=== PATIENT | male | born 1980 | race Caucasian/White ===

== ENCOUNTER 2021-05-15 08:29 | Emergency (ER) | payer OTHER, SELFPAY ==
[2021-05-15 08:40] VITALS: BP 118/81; PULSE 85; RESP 18; TEMP 37.1; O2SAT 96; BMI 31.2
[2021-05-15 08:47] VITALS: BP 128/74; PULSE 84; RESP 18; TEMP 37.1; O2SAT 97
--- NOTE | 2021-05-15 09:16 | W.ED.FEVER ---
HPI - Fever General: Chief Complaint: Fever Stated Complaint: Fever, body aches, sweats Time Seen by Provider: 05/15/21 08:31 History of Present Illness: HPI Narrative: 40-year-old male presents emergency room complaining of fever fatigue myalgias temp up to 101.7 for the last 3 days. Progressively worsening patient is an insulin-dependent diabetic. He has had multiple tick bites over the last few weeks has been taking more regularly has not been treated for anything. Not had any nausea vomiting shortness of breath or cough. He is not noticed any rash or target bull's-eye rashes around any of these bites. No diarrhea or anosmia. MD elicited complaint: fever and malaise Pertinent past history: diabetes Onset (ago): day(s) Context: other (Recent tick bites) Exacerbating factors: nothing Relieving factors: nothing Associated symptoms: Reports chills, myalgias, nausea and stiffness; Deny abdominal pain, flank pain, chest pain, confusion, cough, diarrhea, dysuria, extremity pain, headache(s), nasal congestion, night sweats, rash, rhinorrhea, short of breath, sinus pain, sore throat, vaginal discharge, vomiting or weight loss Treatments prior to arrival fever: none Review of Systems Const: Reports: chills; Denies: night sweats ENMT: Denies: nasal congestion or sinus pain Card: Denies: chest pain Resp: Denies: dyspnea, productive cough or non-productive cough GI: Reports: nausea; Denies: abdominal pain, vomiting or diarrhea : Denies: flank pain or dysuria Musc: Denies: extremity pain Skin/Breast: Denies: rash or pruritus Neuro: Denies: headache(s) or confusion Physical Exam Const: COMMON NORMALS: no acute distress GENERAL APPEARANCE: cooperative and comfortable ORIENTATION/CONSCIOUSNESS: Yes awake, Yes oriented to person, Yes oriented to place and Yes oriented to time HENMT: COMMON NORMALS: normocephalic, atraumatic, hearing grossly normal bilaterally and external ears normal HEAD & SCALP: normocephalic and atraumatic EXTERNAL EAR: Yes external ears normal Neck/C-Spine: COMMON NORMALS: no JVD Resp: COMMON NORMALS: normal respiratory effort, No retractions, No use of accessory muscles and clear to auscultation bilaterally AUSCULTATION: clear to auscultation bilaterally Cardio: COMMON NORMALS: no JVD, regular rate, regular rhythm and No murmurs present (Cardio) RATE: regular rate RHYTHM: regular rhythm GI: COMMON NORMALS: Soft to palpation and No hepatosplenomegaly present AUSCULTATION: Yes normoactive bowel sounds PALPATION: Yes Soft to palpation, No Tenderness to palpation present (GI), No Guarding due to palpation present (GI) and Yes No hepatosplenomegaly present Extremity: COMMON NORMALS: normal to inspection, capillary refill normal, no clubbing, cyanosis or edema, no calf tenderness and no pedal edema Neuro: SENSORIUM/ORIENTATION: Yes oriented to person, Yes oriented to place and Yes oriented to time Skin: COMMON NORMALS: no rashes or lesions noted GENERAL SKIN EXAM: no rashes or lesions noted Course Vital Signs: Vital signs: Vital Signs Temperature 98.7 F 05/15/21 11:00 Pulse Rate 81 05/15/21 11:00 Respiratory Rate 18 05/15/21 11:00 Blood Pressure 151/76 05/15/21 11:00 Pulse Oximetry 97 05/15/21 11:00 MDM - Fever MDM Narrative: Medical decision making narrative: Treated prophylactically for tickborne illness follow-up with primary care Lab Data: Labs: Lab Results 05/15/21 05/15/21 05/15/21 Range/Units 09:01 09:01 09:01 WBC 3.4 L (4.0-10.0) 10^3/ uL RBC 5.18 (4.1-5.3) 10^6/u L Hgb 15.1 (11.7-16.6) g/dL Hct 43.8 (42.0-52.0) % MCV 84.6 (80-94) fL MCH 29.2 (28.0-34.0) pg MCHC 34.5 (30.0-36.0) g/dL RDW 11.7 L (12.1-15.1) % Plt Count 187 (130-400) 10^3/c mm MPV 9.7 (7.4-10.4) fL Neut % (Auto) 73.3 % Lymph % (Auto) 14.5 % Weber % (Auto) 9.5 % Eos % (Auto) 1.5 % Baso % (Auto) 0.6 % Neut # (Auto) 2.48 (1.8-7.7) 10^3/u L Lymph # (Auto) 0.5 L (0.8-4.8) 10^3/u L Weber # (Auto) 0.3 (0.2-0.9) 10^3/u L Eos # (Auto) 0.1 (0.0-0.8) 10^3/u L Baso # (Auto) 0.0 (0.0-0.1) 10^3/u L Nucleated RBC % (a uto) 0 % Nucleated RBCs # 0.0 /100WBC Sodium 131 L (136-145) mmol/L Potassium 4.7 (3.5-5.1) mmol/L Chloride 97 L (98-107) mmol/L Carbon Dioxide 22 (22-29) mmol/L Anion Gap 16.7 (5-19) BUN 21 H (6-20) mg/dL Creatinine 0.8 (0.7-1.2) mg/dL GFR Calculation 107.6 (90-130) mL/min Glucose 283 H (65-115) mg/dL Calculated Osmolal ity 285 (285-295) mOsm/k g Calcium 8.7 (8.5-10.5) mg/dL Total Bilirubin 0.6 (0.15-1.2) mg/dL AST 44 H (0-40) U/L ALT 30 (0-41) U/L Alkaline Phosphata se 94 (40-130) IU/L Total Protein 7.5 (6.6-8.7) g/dL Albumin 4.4 (3.5-5.2) g/dL Globulin 3.1 (1.3-4.6) g/dL Lipase 22 (13-60) U/L Urine Color (Yellow) Urine Appearance (CLEAR) Urine pH (5-7) Ur Specific Gravit y (1.005-1.030) Urine Protein (Negative) Urine Glucose (UA) (Normal) Urine Ketones (Negative) Urine Blood (Negative) Urine Nitrate (Negative) Urine Bilirubin (Negative) Urine Urobilinogen (Negative) mg/dL Ur Leukocyte Marlena ase (Negative) Lyme Ab (Western B lot) <0.90 index 05/15/21 Range/Units 09:35 WBC (4.0-10.0) 10^3/ uL RBC (4.1-5.3) 10^6/u L Hgb (11.7-16.6) g/dL Hct (42.0-52.0) % MCV (80-94) fL MCH (28.0-34.0) pg MCHC (30.0-36.0) g/dL RDW (12.1-15.1) % Plt Count (130-400) 10^3/c mm MPV (7.4-10.4) fL Neut % (Auto) % Lymph % (Auto) % Weber % (Auto) % Eos % (Auto) % Baso % (Auto) % Neut # (Auto) (1.8-7.7) 10^3/u L Lymph # (Auto) (0.8-4.8) 10^3/u L Weber # (Auto) (0.2-0.9) 10^3/u L Eos # (Auto) (0.0-0.8) 10^3/u L Baso # (Auto) (0.0-0.1) 10^3/u L Nucleated RBC % (a uto) % Nucleated RBCs # /100WBC Sodium (136-145) mmol/L Potassium (3.5-5.1) mmol/L Chloride (98-107) mmol/L Carbon Dioxide (22-29) mmol/L Anion Gap (5-19) BUN (6-20) mg/dL Creatinine (0.7-1.2) mg/dL GFR Calculation (90-130) mL/min Glucose (65-115) mg/dL Calculated Osmolal ity (285-295) mOsm/k g Calcium (8.5-10.5) mg/dL Total Bilirubin (0.15-1.2) mg/dL AST (0-40) U/L ALT (0-41) U/L Alkaline Phosphata se (40-130) IU/L Total Protein (6.6-8.7) g/dL Albumin (3.5-5.2) g/dL Globulin (1.3-4.6) g/dL Lipase (13-60) U/L Urine Color Yellow (Yellow) Urine Appearance Clear (CLEAR) Urine pH 5 (5-7) Ur Specific Gravit y 1.020 (1.005-1.030) Urine Protein Neg (Negative) Urine Glucose (UA) 4+ H (Normal) Urine Ketones 1+ H (Negative) Urine Blood Neg (Negative) Urine Nitrate Negative (Negative) Urine Bilirubin 1+ H (Negative) Urine Urobilinogen 1 H (Negative) mg/dL Ur Leukocyte Marlena ase Negative (Negative) Lyme Ab (Western B lot) index Discharge Plan Discharge Patient Disposition: Home Clinical Impression: Tick-borne disease Condition: Stable Prescriptions: New doxycycline hyclate 100 mg capsule 100 mg PO BID 10 Days Qty: 20 RF: 0 hydrocodone-acetaminophen 5-325 mg tablet 1 tab PO Q6H PRN (Reason: pain) Qty: 15 RF: 0 No Action atorvastatin 80 mg Tablet 80 mg PO DAILY RF: 0 cetirizine 10 mg Tablet 10 mg PO DAILY RF: 0 lisinopril-hydrochlorothiazide 20-12.5 mg Tablet 1 tab PO DAILY RF: 0 fluticasone propionate 50 mcg/actuation [place],Suspension 1 spray INTRANASAL DAILY RF: 0 Novolog Flexpen U-100 Insulin 100 unit/mL (3 mL) Insulin Pen See Rx Instructions .ROUTE .COMPLEX RF: 0 Discharge Orders: Discharge ED (Routine); Ordered 05/15/21 Ordered By: Yariel Rico Patient Instructions: Opioid Safety Coding Level of Care Code ED Solvent Plant Treater for Aristeo Willard
[2021-05-15 09:19] LABS: Basophils % 0.6 %; Eosinophils # 0.1 10^3/uL (0.0-0.8); Eosinophils % 1.5 %; Hematocrit 43.8 % (42.0-52.0); Hemoglobin 15.1 g/dL (11.7-16.6); Lymphocytes # 0.5 10^3/uL (0.8-4.8); Lymphocytes % 14.5 %; Mean Corpuscular HGB Conc 34.5 g/dL (30.0-36.0); Mean Corpuscular Hemoglobin 29.2 pg (28.0-34.0); Mean Corpuscular Volume 84.6 fL (80-94); Mean Platelet Volume 9.7 fL (7.4-10.4); Monocytes # 0.3 10^3/uL (0.2-0.9); Monocytes % 9.5 %; Neutrophils # 2.48 10^3/uL (1.8-7.7); Neutrophils % 73.3 %; Nucleated Red Blood Cells % 0 %; Platelet Count 187 10^3/cmm (130-400); Red Blood Count 5.18 10^6/uL (4.1-5.3); Red Cell Distribution Width 11.7 % (12.1-15.1); White Blood Count 3.4 10^3/uL (4.0-10.0)
[2021-05-15 09:31] VITALS: BP 138/89; PULSE 83; RESP 18; O2SAT 98
[2021-05-15 09:39] LABS: Add Urine Microscopic? NO; Charge for UA Resulting for Rev
[2021-05-15 09:45] LABS: Alanine Aminotransferase 30 U/L (0-41); Albumin Level 4.4 g/dL (3.5-5.2); Alkaline Phosphatase 94 IU/L (40-130); Anion Gap 16.7 (5-19); Aspartate Amino Transferase 44 U/L (0-40); Blood Urea Nitrogen 21 mg/dL (6-20); Calcium 8.7 mg/dL (8.5-10.5); Carbon Dioxide 22 mmol/L (22-29); Chloride 97 mmol/L (98-107); Globulin 3.1 g/dL (1.3-4.6); Glomerular Filtration Rate 107.6 mL/min (90-130); Glucose 283 mg/dL (65-115); Lipase 22 U/L (13-60); Osmolality Calculated 285 mOsm/kg (285-295); Potassium 4.7 mmol/L (3.5-5.1); Sodium 131 mmol/L (136-145); Total Bilirubin 0.6 mg/dL (0.15-1.2); Total Protein 7.5 g/dL (6.6-8.7)
[2021-05-15 09:45] LABS: Bilirubin Urine 1+ (Negative); Blood Urine Neg (Negative); Glucose Urine UA 4+ (Normal); Ketones Urine 1+ (Negative); Leukocyte Esterase Urine Negative (Negative); Nitrate Urine Negative (Negative); Protein Urine Neg (Negative); Urine Appearance Clear (CLEAR); Urine Color Yellow (Yellow); Urobilinogen Urine 1 mg/dL (Negative); pH Urine 5 (5-7)
[2021-05-15 10:29] VITALS: BP 151/76; PULSE 79; RESP 16; TEMP 36.5; O2SAT 98
[2021-05-15 11:00] VITALS: BP 151/76; PULSE 81; RESP 18; TEMP 37.1; O2SAT 97
[2021-05-16 12:28] LABS: Lyme AB Screen <0.90 index
[2021-05-17 17:28] LABS: E. Chaffeensis AB IGG <1:64; E. Chaffeensis AB IGM <1:20; RMSF IGG NOT DETECTED; RMSF IGM NOT DETECTED
== END 2021-05-15 11:26 | disposition home or self-care (01) ==
PROVIDERS: Emergency Provider Family Medicine
DX: A84.9 Tick-borne viral encephalitis, unspecified (principal); Z79.4 Long term (current) use of insulin
CPT/HCPCS: 36415; 80053; 81003; 83690; 85025; 86618; 86666; 86757; 87040; 99282

== ENCOUNTER → 2021-12-21 08:11 | Outpatient (BNVA) | payer OTHER, SELFPAY | PROVIDERS: Referring Provider Family Medicine; Visit Provider Internal Medicine | DX: E10.65 Type 1 diabetes mellitus with hyperglycemia (principal); E10.649 Type 1 diabetes mellitus with hypoglycemia without coma; Z79.4 Long term (current) use of insulin | CPT/HCPCS: 99204 ==

== ENCOUNTER → 2022-01-07 13:27 | Outpatient (BNVA) | payer OTHER, SELFPAY | PROVIDERS: Visit Provider Internal Medicine | DX: E10.65 Type 1 diabetes mellitus with hyperglycemia (principal); E10.649 Type 1 diabetes mellitus with hypoglycemia without coma; Z79.4 Long term (current) use of insulin | CPT/HCPCS: 99214 ==

== ENCOUNTER → 2022-04-01 13:02 | Outpatient (BNVA) | payer OTHER, SELFPAY | PROVIDERS: Visit Provider Internal Medicine | DX: E10.65 Type 1 diabetes mellitus with hyperglycemia (principal); E10.649 Type 1 diabetes mellitus with hypoglycemia without coma; Z79.4 Long term (current) use of insulin | CPT/HCPCS: 99214 ==

== ENCOUNTER 2022-05-03 10:31 | Outpatient (CLI) | payer OTHER, SELFPAY ==
[2022-05-03 11:22] LABS: Alanine Aminotransferase 47 U/L (0-41); Alkaline Phosphatase 102 IU/L (40-130); Anion Gap 17.1 (5-19); Aspartate Amino Transferase 52 U/L (0-40); Blood Urea Nitrogen 17 mg/dL (6-20); Calcium 9.9 mg/dL (8.5-10.5); Carbon Dioxide 22 mmol/L (22-29); Chloride 100 mmol/L (98-107); Chol HDL Ratio 4.43 mg/dL (1.0-5.00); Cholesterol 177 mg/dL (0-200); Globulin 3.3 g/dL (1.3-4.6); Glomerular Filtration Rate 124.9 mL/min (90-130); Glucose 152 mg/dL (65-115); HDL Cholesterol 40 mg/dL (60-100); LDL Cholesterol Calculated 58 mg/dL (50-129); LDL HDL Ratio 1.45 RATIO (0.00-3.22); Osmolality Calculated 285 mOsm/kg (285-295); Potassium 4.1 mmol/L (3.5-5.1); Sodium 135 mmol/L (136-145); Total Bilirubin 0.6 mg/dL (0.15-1.2); Total Protein 8.3 g/dL (6.6-8.7); Triglycerides 396 mg/dL (0-150)
[2022-05-03 11:33] LABS: Estmated Average Glucose 203; Hemoglobin A1C 8.7 % (4.0-6.0)
== END 2022-05-03 10:32 | disposition home or self-care (01) ==
LOC: LAB 10:35
PROVIDERS: Visit Provider Internal Medicine
DX: E10.649 Type 1 diabetes mellitus with hypoglycemia without coma (principal); E10.65 Type 1 diabetes mellitus with hyperglycemia; Z79.4 Long term (current) use of insulin
CPT/HCPCS: 36415; 80053; 80061; 83036

== ENCOUNTER → 2022-09-18 12:19 | Outpatient (BNVA) | payer MEDICARE, OTHER, SELFPAY | PROVIDERS: PCP Nurse Practitioner; Visit Provider Internal Medicine Cardiovascular Disease | DX: R00.2 Palpitations (principal); I48.91 Unspecified atrial fibrillation; I10 Essential (primary) hypertension; E78.5 Hyperlipidemia, unspecified; E10.65 Type 1 diabetes mellitus with hyperglycemia; Z79.4 Long term (current) use of insulin | CPT/HCPCS: 93242; 99204 ==

== ENCOUNTER → 2023-01-14 12:29 | Outpatient (BNVA) | payer OTHER, SELFPAY | PROVIDERS: PCP Family Medicine; Visit Provider Internal Medicine | DX: E10.65 Type 1 diabetes mellitus with hyperglycemia (principal); E10.649 Type 1 diabetes mellitus with hypoglycemia without coma; Z79.4 Long term (current) use of insulin | CPT/HCPCS: 99215 ==

== ENCOUNTER → 2023-04-01 11:47 | Outpatient (BNVA) | payer OTHER, SELFPAY | PROVIDERS: PCP Family Medicine; Visit Provider Internal Medicine Rheumatology | DX: M06.9 Rheumatoid arthritis, unspecified (principal); Z79.899 Other long term (current) drug therapy; Z11.59 Encounter for screening for other viral diseases | CPT/HCPCS: 36415; 73130; 80076; 82565; 83520; 85025; 85651; 86140; 86200; 86480; 86704; 86803; 87340; 99204 ==

== ENCOUNTER → 2023-04-16 10:49 | Outpatient (BNVA) | payer OTHER, SELFPAY | PROVIDERS: PCP Family Medicine; Visit Provider Internal Medicine | DX: E10.65 Type 1 diabetes mellitus with hyperglycemia (principal); E10.649 Type 1 diabetes mellitus with hypoglycemia without coma; M06.00 Rheumatoid arthritis without rheumatoid factor, unspecified site; Z79.4 Long term (current) use of insulin | CPT/HCPCS: 99214 ==

== ENCOUNTER → 2023-05-13 11:09 | Outpatient (BNVA) | payer OTHER, SELFPAY | PROVIDERS: PCP Family Medicine; Visit Provider Internal Medicine | DX: E10.649 Type 1 diabetes mellitus with hypoglycemia without coma (principal); E78.5 Hyperlipidemia, unspecified; Z79.4 Long term (current) use of insulin; E66.9 Obesity, unspecified; Z68.30 Body mass index [BMI] 30.0-30.9, adult | CPT/HCPCS: 99214 ==

== ENCOUNTER → 2023-06-26 13:26 | Outpatient (BNVA) | payer OTHER, SELFPAY | PROVIDERS: PCP Family Medicine; Visit Provider Internal Medicine Rheumatology | DX: M06.00 Rheumatoid arthritis without rheumatoid factor, unspecified site (principal); Z79.899 Other long term (current) drug therapy; E10.65 Type 1 diabetes mellitus with hyperglycemia; Z71.85 Encounter for immunization safety counseling | CPT/HCPCS: 36415; 80076; 82565; 85025; 86140; 99214 ==

== ENCOUNTER → 2023-08-25 14:46 | Outpatient (BNVA) | payer OTHER, SELFPAY | PROVIDERS: PCP Family Medicine; Visit Provider Nurse Practitioner Family | DX: L02.821 Furuncle of head [any part, except face] (principal); L02.12 Furuncle of neck; D22.5 Melanocytic nevi of trunk; L81.4 Other melanin hyperpigmentation; L57.8 Other skin changes due to chronic exposure to nonionizing radiation; B07.8 Other viral warts; L53.8 Other specified erythematous conditions | CPT/HCPCS: 17110; 99213 ==

== ENCOUNTER → 2023-09-04 13:17 | Outpatient (BNVA) | payer OTHER, SELFPAY | PROVIDERS: PCP Family Medicine; Visit Provider Internal Medicine Rheumatology | DX: Z79.899 Other long term (current) drug therapy (principal); M06.00 Rheumatoid arthritis without rheumatoid factor, unspecified site; E10.65 Type 1 diabetes mellitus with hyperglycemia; Z71.85 Encounter for immunization safety counseling | CPT/HCPCS: 99214 ==

== ENCOUNTER 2024-01-08 12:53 | Outpatient (CLI) | payer OTHER, SELFPAY ==
--- NOTE | 2024-01-08 13:15 | US_ITS ---
WS: [id number] ULTRASOUND ABDOMEN LIMITED CLINICAL INFORMATION: elevated liver enzymes COMPARISON: None. FINDINGS: Liver Size: Normal. Craniocaudal length: 13.8 cm. Echogenicity: Normal. Surface nodularity: None. Mass (size and location): None. Bile ducts Intrahepatic ducts: Normal. Common bile duct diameter: 0.3 cm. Gallbladder Normal. Gallstones: None. Gallbladder sludge: None. Gallbladder wall thickening: None. Pericholecystic fluid: None. Sonographic [place] sign: Absent. Pancreas Normal as visualized. Right kidney: Normal. Hydronephrosis: None. Size: 12.7 cm x 5.8 cm x 5.5 cm. Abdominal aorta and IVC Visualized portions are normal. Ascites: None. IMPRESSION: Normal abdominal ultrasound
== END 2024-01-08 12:54 | disposition home or self-care (01) ==
LOC: RAD 12:53
PROVIDERS: PCP Family Medicine; Visit Provider Internal Medicine
DX: E78.5 Hyperlipidemia, unspecified (principal); R74.01 Elevation of levels of liver transaminase levels; R79.89 Other specified abnormal findings of blood chemistry; M06.00 Rheumatoid arthritis without rheumatoid factor, unspecified site; E10.649 Type 1 diabetes mellitus with hypoglycemia without coma; T38.3X5A Adverse effect of insulin and oral hypoglycemic [antidiabetic] drugs, initial encounter; R74.8 Abnormal levels of other serum enzymes; Z79.4 Long term (current) use of insulin; Z79.899 Other long term (current) drug therapy; Z79.52 Long term (current) use of systemic steroids
CPT/HCPCS: 36415; 76705; 80074; 80076; 82085; 82465; 82550; 82565; 83036; 85025; 86140; 99214; 99215

== ENCOUNTER 2024-01-08 19:35 | Emergency (ER) | payer OTHER, SELFPAY ==
[2024-01-08 19:41] VITALS: BP 148/96; PULSE 93; RESP 16; TEMP 36.7; O2SAT 99
[2024-01-08 20:05] LABS: Basophils # 0.1 10^3/uL (0.0-0.1); Basophils % 0.7 %; Eosinophils # 0.3 10^3/uL (0.0-0.8); Eosinophils % 3.7 %; Lymphocytes # 2.2 10^3/uL (0.8-4.8); Lymphocytes % 29.2 %; Mean Corpuscular Hemoglobin 29.3 pg (27-33); Mean Platelet Volume 9.2 fL (7.4-10.4); Monocytes # 0.5 10^3/uL (0.2-0.9); Monocytes % 7.2 %; Neutrophils # 4.41 10^3/uL (1.8-7.7); Neutrophils % 58.8 %; Nucleated Red Blood Cells % 0 %; Platelet Count 246 10^3/cmm (157-399); Red Blood Count 5.23 10^6/uL (3.85-5.65); Red Cell Distribution Width 11.9 % (12.1-15.1)
--- NOTE | 2024-01-08 20:20 | ED_ITS ---
HPI - Recheck/Abnormal Lab/Rx 2 General: Chief Complaint: Recheck/Abnormal Lab/Rx Stated Complaint: dr Sent [facility] Time Seen by Provider: 01/08/24 19:49 History of Present Illness: Patient presented to the ER for elevated liver enzymes and CK. Patient went to his bacteriologist pharmaceutical and training generalist today just for routine appointment. Patient had no complaints at that time. They constantin lab work and found that his liver enzymes were elevated at approximately 500 and 150. Patient did have a right upper quadrant ultrasound which was negative. Patient does state he has been working out for the last several days really strenuous until failure. Patient says his muscles ache all over secondary to this otherwise he has no complaints. Review of Systems 2 General: Reports: 10 or more systems reviewed and unremarkable except in HPI and below PFSH ED 2 PFSH: Medical History Immunization counseling High risk medication use Allergies Neuropathy Insomnia Seronegative rheumatoid arthritis Dyslipidemia HTN (hypertension) History of atrial fibrillation Arthritis Bilateral rotator cuff dysfunction Diabetes type 1, uncontrolled Surgical History History of ankle surgery Hx of laparoscopy Status post lumbar spine operative procedure for decompression of spinal cord History of back surgery H/O repair of left rotator cuff Family History Father Cancer Myocardial infarction Hypertension Mother Diabetes Arthritis Grandmother Myocardial infarction Hypertension Grandfather Myocardial infarction Hypertension Other CAD (coronary artery disease) Lung disease Rheumatoid arthritis Denies family history of Lupus Psoriatic arthritis Chronic kidney disease (CKD) Stroke Social History Smoking and tobacco/nicotine status: never used tobacco/nicotine Second hand smoke exposure: No Alcohol intake: current Alcohol intake frequency: few times a week Alcohol type: beer and wine Substance/Drug Use: never Adopted: No Caregiver/support person: No Lives independently: Yes Household members: spouse Housing: House Marital status: Number of children: 4 Highest education level completed: High School Graduate service: Yes Current occupational status: retired Physical Exam 2 Const: COMMON NORMALS: no acute distress, average body habitus, patient oriented x3, no limitations, healthy appearing, alert and well nourished HENMT: COMMON NORMALS: normocephalic, atraumatic, hearing grossly normal bilaterally, external ears normal, Normal external nose present, moist oral mucous membranes and oropharynx normal HEAD & SCALP: normocephalic and atraumatic NOSE: Normal external nose present EXTERNAL EAR: Yes external ears normal Neck/C-Spine: COMMON NORMALS: no JVD Chest: COMMONS NORMALS: normal inspection of the chest and normal palpation of entire chest wall Resp: COMMON NORMALS: normal respiratory effort, No retractions, No use of accessory muscles and clear to auscultation bilaterally AUSCULTATION: clear to auscultation bilaterally Cardio: COMMON NORMALS: no JVD, regular rate, regular rhythm, S1 normal heart sound present, S2 normal heart sound present, No gallops present (Cardio), No clicks present (Cardio), No murmurs present (Cardio) and No rub (Cardio) R ATE: regular rate RHYTHM: regular rhythm HEART SOUNDS: S1 normal heart sound present and S2 normal heart sound present GI: COMMON NORMALS: Normal to inspection, nondistended, normoactive bowel sounds present, Soft to palpation, non-tender, No hepatosplenomegaly present and no masses PALPATION: Yes Soft to palpation and Yes No hepatosplenomegaly present Neuro: COMMON NORMALS: patient oriented x3 SENSORIUM/ORIENTATION: Yes alert Course 2 Vital Signs: Vital signs: Vital Signs Temperature 98.1 F 01/08/24 19:41 Pulse Rate 93 01/08/24 19:41 Respiratory Rate 16 01/08/24 19:41 Blood Pressure 148/96 01/08/24 19:41 Pulse Oximetry 99 01/08/24 19:41 Oxygen Delivery Me thod Room Air 01/08/24 19:41 MDM - Recheck/Abnormal Lab/Rx Medical Decision Making We repeated the patient's blood work and his liver enzymes are AST 657, ALT 186, direct bili 0.2, alk phos 88, creatinine kinase 30,980, reviewed his right upper quadrant ultrasound which was essentially negative. Discussed the case with Dr. Darling hospitalist who said as long as patient does not work out, stays very well- hydrated, and is reliable to have blood drawn we can discharge him to have his labs rechecked in 2 to 3 days. Discussed this with the patient and he has a lab draw for his training generalist on Friday. We will discharge the patient. Differential Diagnosis Unlikely encounter for medication refill, encounter for wound recheck, encounter for recheck of burn, encounter for removal of sutures or warfarin-induced coagulopathy Medical Records I reviewed the patient's medical records. Lab Data I reviewed the patient's lab results. 01/08/24 19:59 01/08/24 19:59 Laboratory Results WBC 7.50 10^3/uL (3.29-11.43) 01/08/24 19:59 RBC 5.23 10^6/uL (3.85-5.65) 01/08/24 19:59 Hgb 15.30 g/dL (11.27-16.99) 01/08/24 19:59 Hct 45.0 % (37-53) 01/08/24 19:59 MCV 86.0 fl (82-101) 01/08/24 19:59 MCH 29.3 pg (27-33) 01/08/24 19:59 MCHC 34.0 g/dL (30-55) 01/08/24 19:59 RDW 11.9 % (12.1-15.1) L 01/08/24 19:59 Plt Count 246 10^3/cmm (157-399) 01/08/24 19:59 MPV 9.2 fL (7.4-10.4) 01/08/24 19:59 Neut % (Auto) 58.8 % 01/08/24 19:59 Lymph % (Auto) 29.2 % 01/08/24 19:59 [place] % (Auto) 7.2 % 01/08/24 19:59 Eos % (Auto) 3.7 % 01/08/24 19:59 Baso % (Auto) 0.7 % 01/08/24 19:59 Neut # (Auto) 4.41 10^3/uL (1.8-7.7) 01/08/24 19:59 Lymph # (Auto) 2.2 10^3/uL (0.8-4.8) 01/08/24 19:59 [place] # (Auto) 0.5 10^3/uL (0.2-0.9) 01/08/24 19:59 Eos # (Auto) 0.3 10^3/uL (0.0-0.8) 01/08/24 19:59 Baso # (Auto) 0.1 10^3/uL (0.0-0.1) 01/08/24 19:59 Nucleated RBC % (auto) 0 % 01/08/24 19:59 Nucleated RBCs # 0.0 /100WBC 01/08/24 19:59 Sodium 137 mmol/L (136-145) 01/08/24 19:59 Potassium 3.8 mmol/L (3.5-5.1) 01/08/24 19:59 Chloride 97 mmol/L (98-107) L 01/08/24 19:59 Carbon Dioxide 29 mmol/L (22-29) 01/08/24 19:59 Anion Gap 14.8 (5-19) 01/08/24 19:59 BUN 14 mg/dL (6-20) 01/08/24 19:59 Creatinine 0.9 mg/dL (0.7-1.2) 01/08/24 19:59 GFR Calculation 92.5 mL/min (90-130) 01/08/24 19:59 Glucose 173 mg/dL (65-115) H 01/08/24 19:59 Calculated Osmolality 289 mOsm/kg (285-295) 01/08/24 19:59 Calcium 9.7 mg/dL (8.5-10.5) 01/08/24 19:59 Total Bilirubin 0.9 mg/dL (0.15-1.2) 01/08/24 19:59 AST 657 U/L (0-40) H 01/08/24 19:59 ALT 186 U/L (0-41) H 01/08/24 19:59 Alkaline Phosphatase 88 U/L (40-130) 01/08/24 19:59 Creatine Kinase 96066 U/L (39-308) H* 01/08/24 19:59 CK-MB (CK-2) 17.3 ng/mL (0-10.4) H 01/08/24 19:59 CK-MB (CK-2) Rel Index 0.0 % (0.0-5.3) 01/08/24 19:59 Total Protein 8.1 g/dL (6.6-8.7) 01/08/24 19:59 Albumin 4.7 g/dL (3.5-5.2) 01/08/24 19:59 Globulin 3.4 g/dL (1.3-4.6) 01/08/24 19:59 Urine Color Straw (Yellow) 01/08/24 22:16 Urine Appearance Clear (CLEAR) 01/08/24 22:16 Urine pH 5 (5-7) 01/08/24 22:16 Ur Specific [place] 1.010 (1.005-1.030) 01/08/24 22:16 Urine Protein Neg (Negative) 01/08/24 22:16 Urine Glucose (UA) Norm (Normal) 01/08/24 22:16 Urine Ketones Negative (Negative) 01/08/24 22:16 Urine Blood Neg (Negative) 01/08/24 22:16 Urine Nitrate Negative (Negative) 01/08/24 22:16 Urine Bilirubin Neg (Negative) 01/08/24 22:16 Urine Urobilinogen Norm mg/dL (Negative) 01/08/24 22:16 Ur Leukocyte Esterase Negative (Negative) 01/08/24 22:16 All radiology interpretation(s) finalized by discharge Discharge Plan Discharge Patient Disposition: Home Clinical Impression: Secondary rhabdomyolysis, Elevated liver enzymes Condition: Stable Prescriptions: No Action gabapentin 100 mg capsule 200 mg PO TID zolpidem 5 mg tablet 5 mg PO .HS PRN (Reason: insomnia) (DME) Contour Next Test Strips Strip See Rx Instructions .Route Qty: 720 3RF Rx Instructions: Test 8 times a day and these are the ones compatible with his pump diclofenac sodium 75 mg tablet,delayed release (DR/EC) 75 mg PO Q12H PRN (Reason: moderate to severe pain as needed) Qty: 60 0RF Hold Instructions: Doctor's Order celecoxib [Celebrex] 200 mg capsule 200 mg PO BID PRN (Reason: pain) Qty: 60 0RF Hold Instructions: Doctor's Order Enbrel 50 mg/mL (1 mL) syringe 50 mg SUBCUT .Q7days Qty: 4 4RF aspirin [Adult Low Dose Aspirin] 81 mg tablet,delayed release (DR/EC) 81 mg PO DAILY vitamins B1 B6 B12 Injectable IM (DME) Guardian Sensor 3 Device See Rx Instructions .Route Qty: 5 3RF Rx Instructions: As directed (DME) Guardian Link 3 Transmitter Device See Rx Instructions .Route Qty: 1 3RF Rx Instructions: As directed Ozempic 1 mg/dose (4 mg/3 mL) pen injector See Rx Instructions .ROUTE .COMPLEX Qty: 3 0RF Dose Instruction: INJECT 1MG UNDER THE SKIN EVERY WEEK Rx Instructions: INJECT 1MG UNDER THE SKIN EVERY WEEK atorvastatin 80 mg Tablet 80 mg PO DAILY cetirizine 10 mg Tablet 10 mg PO DAILY lisinopril-hydrochlorothiazide 20-12.5 mg Tablet 1 tab PO DAILY fluticasone propionate 50 mcg/actuation [place],Suspension 1 spray INTRANASAL DAILY Novolog FlexPen U-100 Insulin 100 unit/mL (3 mL) Insulin Pen See Rx Instructions .ROUTE .COMPLEX Rx Instructions: per sliding scale via pump Discharge Orders: Discharge ED (Routine); Ordered 01/08/24 Ordered By: Miguel A Garcias Referrals: Janet Daniel MD [Primary Care Provider] - 1 week Patient Instructions: Rhabdomyolysis (ED) Activity Restrictions/Additional Instructions: Please stay very well-hydrated and drink plenty of fluids. Please do not work out until reevaluated. Please keep your appointment for labs at the beginning and next week and make for sure they recheck your kidney function, liver function and your creatinine kinase. Coding Level of Care Code ED Liquor Grinder Mill Operator for Aristeo Willard
[2024-01-08] MEDS: sodium chloride 0.9% 1,000 ML 999 ML IV ×2 (20:27→21:40)
[2024-01-08 20:30] LABS: Alanine Aminotransferase 186 U/L (0-41); Albumin Level 4.7 g/dL (3.5-5.2); Alkaline Phosphatase 88 U/L (40-130); Anion Gap 14.8 (5-19); Aspartate Amino Transferase 657 U/L (0-40); Blood Urea Nitrogen 14 mg/dL (6-20); Calcium 9.7 mg/dL (8.5-10.5); Carbon Dioxide 29 mmol/L (22-29); Chloride 97 mmol/L (98-107); Globulin 3.4 g/dL (1.3-4.6); Glomerular Filtration Rate 92.5 mL/min (90-130); Glucose 173 mg/dL (65-115); Osmolality Calculated 289 mOsm/kg (285-295); Potassium 3.8 mmol/L (3.5-5.1); Sodium 137 mmol/L (136-145); Total Bilirubin 0.9 mg/dL (0.15-1.2); Total Protein 8.1 g/dL (6.6-8.7)
[2024-01-08 21:05] LABS: Creatine Phosphokinase 30980 U/L (39-308)
[2024-01-08 21:31] LABS: CKMB 17.3 ng/mL (0-10.4)
[2024-01-08 22:30] LABS: Add Urine Microscopic? NO; Charge for UA Resulting for Rev
[2024-01-08 22:31] LABS: Bilirubin Urine Neg (Negative); Blood Urine Neg (Negative); Glucose Urine UA Norm (Normal); Ketones Urine Negative (Negative); Leukocyte Esterase Urine Negative (Negative); Nitrate Urine Negative (Negative); Protein Urine Neg (Negative); Urine Appearance Clear (CLEAR); Urine Color Straw (Yellow); Urobilinogen Urine Norm (Negative); pH Urine 5 (5-7)
== END 2024-01-08 22:43 | disposition home or self-care (01) ==
PROVIDERS: Emergency Medicine; Emergency Provider Emergency Medicine; PCP Family Medicine
DX: M62.82 Rhabdomyolysis (principal); R74.8 Abnormal levels of other serum enzymes; Z79.82 Long term (current) use of aspirin; Z79.4 Long term (current) use of insulin; E78.5 Hyperlipidemia, unspecified; I10 Essential (primary) hypertension; E10.9 Type 1 diabetes mellitus without complications
CPT/HCPCS: 80053; 81003; 82550; 82553; 85025; 96360; 99284; J7030

== ENCOUNTER 2024-01-13 11:16 | Outpatient (CLI) | payer OTHER, SELFPAY ==
[2024-01-13 12:06] LABS: Bilirubin Urine Neg (Negative); Blood Urine Neg (Negative); Glucose Urine UA 2+ (Normal); Ketones Urine 1+ (Negative); Leukocyte Esterase Urine Negative (Negative); Nitrate Urine Negative (Negative); Protein Urine Neg (Negative); Specific Gravity, Urine 1.025 (1.005-1.030); Urine Appearance Clear (CLEAR); Urine Color Yellow (Yellow); Urobilinogen Urine Norm (Negative); pH Urine 5 (5-7)
[2024-01-13 12:13] LABS: Alanine Aminotransferase 116 U/L (0-41); Albumin Level 4.6 g/dL (3.5-5.2); Alkaline Phosphatase 92 U/L (40-130); Anion Gap 15.7 (5-19); Aspartate Amino Transferase 272 U/L (0-40); Blood Urea Nitrogen 15 mg/dL (6-20); Calcium 9.5 mg/dL (8.5-10.5); Carbon Dioxide 27 mmol/L (22-29); Chloride 99 mmol/L (98-107); Chol HDL Ratio 3.49 mg/dL (1.0-5.00); Cholesterol 171 mg/dL (0-200); Globulin 3.6 g/dL (1.3-4.6); Glomerular Filtration Rate 92.5 mL/min (90-130); Glucose 173 mg/dL (65-115); HDL Cholesterol 49 mg/dL (60-100); LDL Cholesterol Calculated 104 mg/dL (50-129); LDL HDL Ratio 2.12 RATIO (0.00-3.22); Osmolality Calculated 289 mOsm/kg (285-295); Potassium 4.7 mmol/L (3.5-5.1); Sodium 137 mmol/L (136-145); Total Bilirubin 0.7 mg/dL (0.15-1.2); Total Protein 8.2 g/dL (6.6-8.7); Triglycerides 90 mg/dL (0-150)
[2024-01-13 12:17] LABS: Creatinine Urine, Random 257 mg/dL (39-259); Microalbum Creatinine Ratio Ur 8 mg/dL (0-20); Microalbumin Random Urine 2 ug/dL (0-20)
[2024-01-13 12:39] LABS: Creatine Phosphokinase 2213 U/L (39-308)
[2024-01-13 12:57] LABS: Add Urine Culture? No; Mucus Urine 3+ /hpf; RBC Urine RARE /hpf (0-2); WBC Urine RARE /hpf (0-5)
== END 2024-01-13 11:17 | disposition home or self-care (01) ==
LOC: LAB 11:17
PROVIDERS: Absent Provider Internal Medicine Rheumatology; PCP Family Medicine; Visit Provider Internal Medicine
DX: E10.649 Type 1 diabetes mellitus with hypoglycemia without coma (principal); R74.8 Abnormal levels of other serum enzymes; Z79.4 Long term (current) use of insulin
CPT/HCPCS: 36415; 80053; 80061; 81001; 82044; 82550

== ENCOUNTER 2024-01-30 10:26 | Outpatient (CLI) | payer OTHER, SELFPAY ==
[2024-01-30 11:32] LABS: Alanine Aminotransferase 30 U/L (0-41); Albumin Level 4.3 g/dL (3.5-5.2); Alkaline Phosphatase 79 U/L (40-130); Anion Gap 12.1 (5-19); Aspartate Amino Transferase 39 U/L (0-40); Blood Urea Nitrogen 13 mg/dL (6-20); Carbon Dioxide 25 mmol/L (22-29); Chloride 102 mmol/L (98-107); Creatine Phosphokinase 223 U/L (39-308); Glomerular Filtration Rate 123.7 mL/min (90-130); Glucose 134 mg/dL (65-115); Osmolality Calculated 282 mOsm/kg (285-295); Potassium 4.1 mmol/L (3.5-5.1); Sodium 135 mmol/L (136-145); Total Bilirubin 0.6 mg/dL (0.15-1.2); Total Protein 7.3 g/dL (6.6-8.7)
[2024-02-06 20:24] LABS: Creatine Kinase BB Total None Detected (None Detected); Creatine Kinase Interpretation MACRO CK TYPE 1; Creatine Kinase MB Total 0 % (<5); Creatine Kinase MM Total 92 % (95-100)
== END 2024-01-30 10:27 | disposition home or self-care (01) ==
LOC: LAB 10:26
PROVIDERS: Absent Provider Internal Medicine; PCP Family Medicine; Visit Provider Internal Medicine Rheumatology
DX: Z79.899 Other long term (current) drug therapy (principal); M06.00 Rheumatoid arthritis without rheumatoid factor, unspecified site; E10.649 Type 1 diabetes mellitus with hypoglycemia without coma; Z79.4 Long term (current) use of insulin; E78.5 Hyperlipidemia, unspecified; R74.8 Abnormal levels of other serum enzymes
CPT/HCPCS: 36415; 80053; 82248; 82252; 82550

== ENCOUNTER → 2024-05-06 13:50 | Outpatient (BNVA) | payer OTHER, SELFPAY | PROVIDERS: PCP Family Medicine; Visit Provider Internal Medicine Rheumatology | DX: Z79.899 Other long term (current) drug therapy (principal); M06.00 Rheumatoid arthritis without rheumatoid factor, unspecified site; E10.65 Type 1 diabetes mellitus with hyperglycemia; Z71.85 Encounter for immunization safety counseling | CPT/HCPCS: 36415; 80076; 82565; 85025; 86140; 99214 ==

== ENCOUNTER → 2024-07-01 11:45 | Outpatient (BNVA) | payer OTHER, SELFPAY | PROVIDERS: PCP Family Medicine; Visit Provider Internal Medicine | DX: Z53.9 Procedure and treatment not carried out, unspecified reason (principal) | CPT/HCPCS: 99214 ==

== ENCOUNTER → 2024-08-25 10:15 | Outpatient (BNVA) | payer OTHER, SELFPAY | PROVIDERS: PCP Family Medicine; Visit Provider Nurse Practitioner Family | DX: L80 Vitiligo (principal); D22.5 Melanocytic nevi of trunk; L81.4 Other melanin hyperpigmentation; L57.8 Other skin changes due to chronic exposure to nonionizing radiation; L82.1 Other seborrheic keratosis; L82.0 Inflamed seborrheic keratosis | CPT/HCPCS: 17110; 99214 ==

== ENCOUNTER → 2024-11-03 09:00 | Outpatient (BNVA) | payer OTHER, SELFPAY | PROVIDERS: PCP Family Medicine; Visit Provider Internal Medicine | DX: Z79.4 Long term (current) use of insulin (principal); E10.65 Type 1 diabetes mellitus with hyperglycemia; E78.5 Hyperlipidemia, unspecified; E10.649 Type 1 diabetes mellitus with hypoglycemia without coma | CPT/HCPCS: 99215 ==

== ENCOUNTER → 2024-11-04 14:10 | Outpatient (BNVA) | payer OTHER, SELFPAY | PROVIDERS: PCP Family Medicine; Visit Provider Internal Medicine Rheumatology | DX: M06.00 Rheumatoid arthritis without rheumatoid factor, unspecified site (principal); Z79.899 Other long term (current) drug therapy; Z71.85 Encounter for immunization safety counseling; E10.65 Type 1 diabetes mellitus with hyperglycemia | CPT/HCPCS: 20600; 99214; J1010 ==

== ENCOUNTER 2024-12-23 11:34 | Outpatient (CLI) | payer OTHER, SELFPAY ==
[2024-12-23 12:18] LABS: Basophils # 0.1 10^3/uL (0.0-0.1); Eosinophils # 0.5 10^3/uL (0.0-0.8); Eosinophils % 6.9 %; Hematocrit 45.6 % (37-53); Lymphocytes # 2.4 10^3/uL (0.8-4.8); Lymphocytes % 34.9 %; Mean Corpuscular HGB Conc 33.1 g/dL (30-55); Mean Corpuscular Hemoglobin 28.5 pg (27-33); Mean Platelet Volume 9.7 fL (7.4-10.4); Monocytes # 0.7 10^3/uL (0.2-0.9); Monocytes % 9.7 %; Neutrophils % 47.2 %; Nucleated Red Blood Cells % 0 %; Platelet Count 264 10^3/cmm (157-399); Red Cell Distribution Width 11.9 % (12.1-15.1); White Blood Count 6.79 10^3/uL (3.29-11.43)
[2024-12-23 12:22] LABS: Erythrocyte Sedimentation Rate 4 mm/hr (0-10)
[2024-12-23 12:33] LABS: Creatinine Urine, Random 184 mg/dL (39-259); Microalbum Creatinine Ratio Ur 5 mg/dL (0-20); Microalbumin Random Urine 1 ug/dL (0-20)
[2024-12-23 12:36] LABS: Estmated Average Glucose 169; Hemoglobin A1C 7.5 % (4.0-6.0)
[2024-12-23 12:42] LABS: Alanine Aminotransferase 48 U/L (0-41); Albumin Level 4.6 g/dL (3.5-5.2); Alkaline Phosphatase 85 U/L (40-130); Anion Gap 12.7 (5-19); Aspartate Amino Transferase 50 U/L (0-40); Blood Urea Nitrogen 13 mg/dL (6-20); Calcium 9.8 mg/dL (8.5-10.5); Carbon Dioxide 29 mmol/L (22-29); Chloride 102 mmol/L (98-107); Cholesterol 124 mg/dL (0-200); Globulin 3.3 g/dL (1.3-4.6); Glomerular Filtration Rate 105.5 mL/min (90-130); Glucose 101 mg/dL (65-115); HDL Cholesterol 46 mg/dL (60-100); LDL Cholesterol Calculated 67 mg/dL (50-129); LDL HDL Ratio 1.46 RATIO (0.00-3.22); Osmolality Calculated 288 mOsm/kg (285-295); Potassium 4.7 mmol/L (3.5-5.1); Sodium 139 mmol/L (136-145); Total Bilirubin 0.9 mg/dL (0.15-1.2); Total Protein 7.9 g/dL (6.6-8.7); Triglycerides 55 mg/dL (0-150)
[2024-12-23 13:19] LABS: Alanine Aminotransferase 48 U/L (0-41); Albumin Level 4.6 g/dL (3.5-5.2); Alkaline Phosphatase 84 U/L (40-130); Aspartate Amino Transferase 50 U/L (0-40); Globulin 3.3 g/dL (1.3-4.6); Total Bilirubin 0.9 mg/dL (0.15-1.2); Total Protein 7.9 g/dL (6.6-8.7)
== END 2024-12-23 11:35 | disposition home or self-care (01) ==
PROVIDERS: Absent Provider Internal Medicine; PCP Family Medicine; Visit Provider Internal Medicine Rheumatology
DX: M06.00 Rheumatoid arthritis without rheumatoid factor, unspecified site (principal); E10.649 Type 1 diabetes mellitus with hypoglycemia without coma; E10.65 Type 1 diabetes mellitus with hyperglycemia; Z79.4 Long term (current) use of insulin; E78.5 Hyperlipidemia, unspecified; Z79.899 Other long term (current) drug therapy
CPT/HCPCS: 36415; 80053; 80061; 80076; 82044; 83036; 85025; 85651; 86140

== ENCOUNTER 2025-01-28 11:17 | Outpatient (CLI) | payer OTHER, SELFPAY ==
[2025-01-28 13:04] LABS: Alanine Aminotransferase 50 U/L (0-41); Albumin Level 4.5 g/dL (3.5-5.2); Alkaline Phosphatase 79 U/L (40-130); Anion Gap 13.2 (5-19); Aspartate Amino Transferase 47 U/L (0-40); Blood Urea Nitrogen 14 mg/dL (6-20); Calcium 9.4 mg/dL (8.5-10.5); Carbon Dioxide 27 mmol/L (22-29); Chloride 98 mmol/L (98-107); Chol HDL Ratio 3.45 mg/dL (1.0-5.00); Cholesterol 145 mg/dL (0-200); Estmated Average Glucose 151; Globulin 2.9 g/dL (1.3-4.6); Glomerular Filtration Rate 105.5 mL/min (90-130); Glucose 192 mg/dL (65-115); HDL Cholesterol 42 mg/dL (60-100); Hemoglobin A1C 6.9 % (4.0-6.0); LDL Cholesterol Calculated 86 mg/dL (50-129); LDL HDL Ratio 2.05 RATIO (0.00-3.22); Osmolality Calculated 284 mOsm/kg (285-295); Potassium 4.2 mmol/L (3.5-5.1); Sodium 134 mmol/L (136-145); Total Bilirubin 0.8 mg/dL (0.15-1.2); Total Protein 7.4 g/dL (6.6-8.7); Triglycerides 84 mg/dL (0-150)
[2025-01-28 13:10] LABS: Creatinine Urine, Random 123 mg/dL (39-259); Microalbum Creatinine Ratio Ur 8 mg/dL (0-20); Microalbumin Random Urine 1 ug/dL (0-20)
== END 2025-01-28 11:18 | disposition home or self-care (01) ==
LOC: LAB 11:19
PROVIDERS: Absent Provider Internal Medicine Rheumatology; PCP Family Medicine; Visit Provider Internal Medicine
DX: E10.65 Type 1 diabetes mellitus with hyperglycemia (principal); Z79.4 Long term (current) use of insulin; E78.5 Hyperlipidemia, unspecified; E10.649 Type 1 diabetes mellitus with hypoglycemia without coma
CPT/HCPCS: 36415; 80053; 80061; 82044; 83036

== ENCOUNTER → 2025-02-01 12:44 | Outpatient (BNVA) | payer OTHER, SELFPAY | PROVIDERS: PCP Family Medicine; Visit Provider Internal Medicine Rheumatology | DX: M06.00 Rheumatoid arthritis without rheumatoid factor, unspecified site (principal); E10.65 Type 1 diabetes mellitus with hyperglycemia; Z79.899 Other long term (current) drug therapy; Z71.85 Encounter for immunization safety counseling | CPT/HCPCS: 99214 ==

== ENCOUNTER → 2025-03-14 10:36 | Outpatient (BNVA) | payer OTHER, SELFPAY | PROVIDERS: PCP Family Medicine; Visit Provider Nurse Practitioner Family | DX: L80 Vitiligo (principal); L81.4 Other melanin hyperpigmentation; L57.8 Other skin changes due to chronic exposure to nonionizing radiation | CPT/HCPCS: 99214 ==

== ENCOUNTER → 2025-03-15 08:56 | Outpatient (BNVA) | payer OTHER, SELFPAY | PROVIDERS: PCP Family Medicine; Visit Provider Internal Medicine | DX: E10.649 Type 1 diabetes mellitus with hypoglycemia without coma (principal); E78.5 Hyperlipidemia, unspecified; Z79.4 Long term (current) use of insulin | CPT/HCPCS: 99214 ==

== ENCOUNTER → 2025-05-24 14:15 | Outpatient (BNVA) | payer OTHER, SELFPAY | PROVIDERS: PCP Family Medicine; Visit Provider Internal Medicine Rheumatology | DX: M06.00 Rheumatoid arthritis without rheumatoid factor, unspecified site (principal); E10.65 Type 1 diabetes mellitus with hyperglycemia; Z79.899 Other long term (current) drug therapy; Z71.85 Encounter for immunization safety counseling; R05.3 Chronic cough | CPT/HCPCS: 36415; 80076; 82306; 82565; 84550; 85025; 85651; 86140; 86480; 99214 ==

== ENCOUNTER 2025-06-01 07:51 | Outpatient (CLI) | payer OTHER, SELFPAY | END 2025-06-01 07:52 | disposition home or self-care (01) | LOC: RT 07:52 | PROVIDERS: PCP Family Medicine; Visit Provider Internal Medicine Rheumatology | DX: R05.3 Chronic cough (principal) | CPT/HCPCS: 94010; 94726; 94729 ==

== ENCOUNTER → 2025-08-08 10:02 | Outpatient (BNVA) | payer OTHER, SELFPAY | PROVIDERS: PCP Family Medicine; Visit Provider Student in an Organized Health Care Education/Training Program | DX: Z12.11 Encounter for screening for malignant neoplasm of colon (principal) | CPT/HCPCS: 99204 ==

== ENCOUNTER 2025-09-06 07:26 | Day surgery (SDC) | payer OTHER, SELFPAY ==
[2025-09-06 07:40] VITALS: BP 150/93; PULSE 78; RESP 18; TEMP 36.1; O2SAT 98
[2025-09-06 07:41] VITALS: BMI 30.6
--- NOTE | 2025-09-06 08:03 | ANES.PREANE2 ---
Pre-Anesthetic Assessment Height/Weight: Height 1.91 m Weight 111.13 kg Temp Pulse Resp BP Pulse Ox O2 Del Method 97.0 F L 78 18 150/93 98 Room Air 09/06/25 07:40 09/06/25 07:40 09/06/25 07:40 09/06/25 07:40 09/06/25 07:40 09/06/25 07:40 Preop Diagnosis: screening Operation Date: 09/06/25 08:45 Proposed Procedures p Colonoscopy 77120 G0105 Z12.11(Not Applicable) - Smith Michaud MD Was Beta Desiree taken within 24 hours: N/A Was Clonidine taken within 24 hours: N/A Last intake: Intake Last Liquid Date 09/05/25 Last Liquid Time 22:30 Last Solid Date 09/04/25 Last Intake: 21:00 Social No alcohol and No tobacco Exam oriented x 3 Airway Submandibular: within normal limits Cervical ROM: within normal limits Mallampati: Class II Dentition: full History/ROS No significant history except as noted Pulmonary None reported CV/HEM Arrythmia and None reported None reported Hepatic None reported GI Hiatal Hernia Musc/skel Osteoarthritis/DJD Neuropsych None reported Anesthetic Plan ASA status: 3 Anesthesia: Anesthesia Evaluation Risk of > 500 ml blood loss (7ml/kg in children): No Medications/Allergies Home Medications ?Medication ?Instructions ?Recorded ?Confirmed ?Last Taken ?Type atorvastatin 80 mg tablet 80 mg PO BEDTIME 05/15/21 08/31/25 09/05/25 History cetirizine 10 mg tablet 10 mg PO DAILY 05/15/21 08/31/25 09/05/25 History fluticasone propionate 50 1 spray intranasal DAILY 05/15/21 08/31/25 09/05/25 History mcg/actuation nasal spray,suspension lisinopril 20 1 tab PO DAILY 05/15/21 08/31/25 09/05/25 History mg-hydrochlorothiazide 12.5 mg tablet gabapentin 100 mg capsule 200 mg PO TID PRN NERVE PAIN 12/21/21 09/06/25 09/05/25 History aspirin 81 mg tablet,delayed 81 mg PO DAILY 09/18/22 08/31/25 09/05/25 History release (Adult Low Dose Aspirin) vitamins B1 B6 B12 intramuscular 1 ea IM Q30D 09/18/22 08/31/2525 History zolpidem 5 mg tablet 5 mg PO .HS PRN insomnia 09/18/22 09/06/25 09/05/25 History subcutaneous insulin pump (MiniMed #1 ea 07/01/24 08/08/25 Unknown Rx 770G Insulin Pump) blood-glucose transmitter #1 ea 11/03/24 08/08/25 Unknown Rx (Guardian 4 Transmitter device) infusion set for insulin pump #50 ea 03/15/25 08/08/25 Unknown Rx (MiniMed Jose Advance Infusion Set 43 ) insulin aspart U-100 100 unit/mL See Rx Instructions SUBCUT .via 03/15/25 08/31/25 09/05/25 Rx subcutaneous solution (Novolog pump 90 days #135 mL U-100 Insulin aspart) insulin pump syringe 3 mL #50 ea 03/15/25 08/08/25 Unknown Rx (Par[facility] [place]) blood sugar diagnostic (Accu-Chek #100 ea 05/11/25 08/08/25 Unknown Rx Guide test strips) blood-glucose sensor (Guardian 4 #15 ea 05/11/25 08/08/25 Unknown Rx Glucose Sensor device) meloxicam 15 mg tablet 15 mg PO DAILY PRN Joint pain #60 05/11/25 09/06/25 09/05/25 Rx tabs semaglutide 1 mg/dose (4 mg/3 mL) 1 mg (0.75 mL) SUBCUT Q7D 90 days 05/11/25 08/31/25 08/21/25 Rx subcutaneous pen injector (Ozempic) #9.75 mL transparent dressings 4 X 4 3/4 #50 ea 05/11/25 08/08/25 Unknown Rx (Tegaderm) diclofenac sodium 1 % topical gel 4 g topical QID PRN ARTHRITIS 05/24/25 09/06/25 Unknown History (Arthritis Pain (diclofenac)) etanercept 50 mg/mL (1 mL) 50 mg SUBCUT .Q7days #12 mL 05/24/25 08/31/25 08/28/25 Rx subcutaneous syringe (Enbrel) leflunomide 10 mg tablet 10 mg PO DAILY #90 tabs 05/24/25 08/31/25 09/05/25 Rx tramadol 50 mg tablet 50 mg PO TID PRN pain (scale score 0609/06/25 09/05/25 Rx 7-10) #60 tabs sulfasalazine 500 mg tablet 0.5 g PO BID #180 tabs 07/11/25 08/31/25 09/05/25 Rx bisacodyl 5 mg tablet,delayed 5 mg PO DAILY #4 tabs 08/08/25 09/06/25 09/05/25 Rx release (Dulcolax (bisacodyl)) magnesium citrate 296 ml PO BID 1 day #592 mL 08/08/25 09/06/25 09/05/25 Rx Allergies Allergy/AdvReac Type Severity Reaction Status Date / Time adalimumab (From Humira) AdvReac Intermediate skin Verified 08/08/25 10:05 reaction at inj site Current Medications Generic Name Dose Route Start Last Admin Trade Name Freq PRN Reason Stop Dose Admin Sodium Chloride 1,000 mls @ 15 mls/hr 09/06/25 07:32 09/06/25 07:51 Sodium Chloride 0.9% IV 09/07/25 07:31 15 mls/hr .Q24H PRN Administration COLONOSCOPY FLUIDS PFSH Anesthesia Medical History Immunization counseling High risk medication use Allergies Neuropathy Insomnia Seronegative rheumatoid arthritis Dyslipidemia HTN (hypertension) History of atrial fibrillation Arthritis Bilateral rotator cuff dysfunction Diabetes type 1, uncontrolled Surgical History (Updated 08/08/25 @ 10:[address]) History of ankle surgery Hx of laparoscopy Status post lumbar spine operative procedure for decompression of spinal cord History of back surgery H/O repair of left rotator cuff Family History Father Cancer Myocardial infarction Hypertension Mother Diabetes Arthritis Grandmother Myocardial infarction Hypertension Grandfather Myocardial infarction Hypertension Other CAD (coronary artery disease) Lung disease Rheumatoid arthritis Denies family history of Lupus Psoriatic arthritis Chronic kidney disease (CKD) Stroke Social History (Updated 08/08/25 @ 10:[address]) Smoking and tobacco/nicotine status: unknown if used tobacco/nicotine (Former chewing tobacco) Second hand smoke exposure: No Alcohol intake: current Alcohol intake frequency: few times a month Alcohol type: beer and wine Substance/Drug Use: never Adopted: No Caregiver/support person: No Lives independently: Yes Household members: spouse Housing: House Marital status: Number of children: 4 Highest education level completed: High School Graduate service: Yes Current occupational status: retired Data Anesthesia Cardiac Studies: Holter Monitor 09/18/22
--- NOTE | 2025-09-06 08:18 | W.PM.OPSUD ---
Surgery/Procedure H&P Update DATE OF PROCEDURE: September 06, 2025 DATE H&P PERFORMED: 08/08/25 H&P UPDATE INFORMATION: I have reviewed H&P completed within last 30 days, I have examined patient prior to procedure, No changes to prior documentation and Risks and benefits of the procedure reviewed PREOP DIAGNOSIS: screening PLANNED PROCEDURE: Operation Date: 09/06/25 08:45 Proposed Procedures p Colonoscopy 80883 G0105 Z12.11(Not Applicable) - Smith Michaud MD
[2025-09-06 08:48] VITALS: BP 123/68; PULSE 71; RESP 16; TEMP 36.1; O2SAT 98
--- NOTE | 2025-09-06 09:14 | ANE.PACU2 ---
Inpatient post-anesthesia follow up: Airway intact: Yes Vital signs: Temperature 97.0 F Pulse Rate 71 Respiratory Rate 16 Blood Pressure 123/68 Pulse Oximetry 98 Oxygen Delivery Me thod Room Air Oxygen Flow Rate Fraction of Inspir ed Oxygen Hydration adequate: Yes Nausea and vomiting: No Pain level: 1 Mental status: Baseline
== END 2025-09-06 09:14 | disposition home or self-care (01) ==
PROVIDERS: PCP Family Medicine; Visit Provider Student in an Organized Health Care Education/Training Program
PROC: 0DJD8ZZ Inspection of Lower Intestinal Tract, Via Natural or Artificial Opening Endoscopic (ICD-10-PCS; CPT 45378; principal; 2025-09-06 08:45)
DX: Z12.11 Encounter for screening for malignant neoplasm of colon (principal); K52.9 Noninfective gastroenteritis and colitis, unspecified; D12.7 Benign neoplasm of rectosigmoid junction; D12.2 Benign neoplasm of ascending colon; I49.9 Cardiac arrhythmia, unspecified; K44.9 Diaphragmatic hernia without obstruction or gangrene; Z79.82 Long term (current) use of aspirin; Z79.4 Long term (current) use of insulin; E10.9 Type 1 diabetes mellitus without complications; I48.91 Unspecified atrial fibrillation; I10 Essential (primary) hypertension; E78.5 Hyperlipidemia, unspecified; G62.9 Polyneuropathy, unspecified; Z87.891 Personal history of nicotine dependence
CPT/HCPCS: 36416; 45385; 82962; 88305; J2704; J7030

== ENCOUNTER → 2025-10-06 09:13 | Outpatient (BNVA) | payer OTHER, SELFPAY | PROVIDERS: PCP Family Medicine; Visit Provider Student in an Organized Health Care Education/Training Program | DX: Z09 Encounter for follow-up examination after completed treatment for conditions other than malignant neoplasm (principal); K52.9 Noninfective gastroenteritis and colitis, unspecified | CPT/HCPCS: 99213 ==

== ENCOUNTER → 2025-10-18 09:21 | Outpatient (BNVA) | payer OTHER, SELFPAY | PROVIDERS: PCP Family Medicine; Visit Provider Internal Medicine Rheumatology | DX: M06.00 Rheumatoid arthritis without rheumatoid factor, unspecified site (principal); E10.65 Type 1 diabetes mellitus with hyperglycemia; Z79.899 Other long term (current) drug therapy; Z71.85 Encounter for immunization safety counseling | CPT/HCPCS: 36415; 80076; 82565; 85025; 85651; 86140; 99214 ==

== ENCOUNTER → 2025-10-31 09:23 | Outpatient (BNVA) | payer OTHER, SELFPAY | PROVIDERS: PCP Family Medicine; Visit Provider Nurse Practitioner Family | DX: L80 Vitiligo (principal); L57.8 Other skin changes due to chronic exposure to nonionizing radiation | CPT/HCPCS: 99213 ==

== ENCOUNTER 2025-11-02 07:50 | Outpatient (CLI) | payer OTHER, SELFPAY ==
--- NOTE | 2025-11-02 08:00 | NM_ITS ---
WS: [id number] NUCLEAR MEDICINE HIDA SCAN WITH GALLBLADDER EJECTION FRACTION HISTORY: RUQ PAIN COMPARISON: 01/08/2024 TECHNIQUE: The patient was intravenously injected with 7.8 mCi of TC99m Mebrofenin. Immediate imaging over the right upper quadrant was followed by 5 minute image and additional images for a total of 60 minutes. Normal uptake of radiotracer throughout the liver. Activity identified in the gallbladder at 10 minutes and well distended by 60 minutes. Activity in the proximal small bowel was seen by 10 minutes. Good washout of the radiotracer from the liver by 60 minutes. The patient then drank 8 ounces of Ensure Plus. Ejection fraction at 60 minutes was 59%. Normal GB ejection fraction is 35-75%. Post fatty meal symptoms: None. NM/NM hepatobiliary w phar* [id number] IMPRESSION: 1. Normal HIDA scan. 2. Normal gallbladder ejection fraction.
== END 2025-11-02 07:51 | disposition home or self-care (01) ==
LOC: RAD 07:53
PROVIDERS: PCP Family Medicine Geriatric Medicine; Visit Provider Family Medicine Geriatric Medicine
DX: R19.8 Other specified symptoms and signs involving the digestive system and abdomen (principal)
CPT/HCPCS: 78227; A9537

== ENCOUNTER 2025-11-07 08:05 | Outpatient (CLI) | payer OTHER, SELFPAY ==
--- NOTE | 2025-11-07 08:08 | US_ITS ---
WS: [id number] Complete ABDOMINAL ULTRASOUND HISTORY: GALLBLADDER PAIN COMPARISON: RIGHT upper quadrant ultrasound 01/08/2024. Liver: 16.8 cm in length. Normal size liver and echogenicity. No bile duct dilatation or mass. Portal Vein: Normal hepatopetal flow with monophasic waveform. Gallbladder: Normally distended gallbladder with no stones or wall thickening. CBD: 0.6 cm Pancreas: Obscured. Right kidney: 12.3 cm x 5.5 x 5.8 cm. Cortex:1.2 cm. Normal size and echogenicity. No hydronephrosis or mass. Left kidney: 12.3 cm x 6.0 cm x 5.7 cm. Cortex: 1.1 cm. Normal size and echogenicity. No hydronephrosis or mass. Spleen: 11.9 cm. Normal size and echogenicity. Aorta and IVC: Unremarkable abdominal aorta and IVC. US/US abdomen complete* [id number] Impression: Normal complete abdomen ultrasound.
== END 2025-11-07 08:06 | disposition home or self-care (01) ==
LOC: RAD 08:05
PROVIDERS: PCP Family Medicine Geriatric Medicine; Visit Provider Family Medicine Geriatric Medicine
DX: K82.9 Disease of gallbladder, unspecified (principal)
CPT/HCPCS: 76700